=== PATIENT | male | born 2000 | race Hispanic/Latino ===

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

== ENCOUNTER 2019-12-07 19:13 | Emergency (ER) | payer OTHER ==
[~2019-12-07] VITALS: Ht 172.7 cm; Wt 72.7 kg
[2019-12-07] MEDS ORDERED: KEFLEX500 M1 PO (19:57)
[2019-12-07 20:05] VITALS: BP 141/83
== END 2019-12-07 20:05 | disposition home or self-care (01) | DRG 605 ==
LOC: ED 19:13
PROC: 0HQBXZZ Repair Right Upper Arm Skin, External Approach (ICD-10-PCS; principal; 2019-12-07)
DX: S41.111A Laceration without foreign body of right upper arm, initial encounter (principal); J45.909 Unspecified asthma, uncomplicated; W26.8XXA Contact with other sharp object(s), not elsewhere classified, initial encounter; Y92.89 Other specified places as the place of occurrence of the external cause; Y99.0 Civilian activity done for income or pay

== ENCOUNTER 2019-12-21 18:13 | Emergency (ER) | payer OTHER ==
[~2019-12-21 18:13] MED LIST changes: +KEFLEX500 M1 PO
== END 2019-12-21 18:45 | disposition left against medical advice (07) | DRG 951 ==
LOC: ED 18:13 → LWOBS 18:45
DX: Z53.21 Procedure and treatment not carried out due to patient leaving prior to being seen by health care provider (principal)

== ENCOUNTER 2019-12-25 14:04 | Emergency (ER) | payer OTHER ==
[~2019-12-25] VITALS: Ht 172.7 cm; Wt 70.0 kg
[2019-12-25 14:25] VITALS: BP 124/80
== END 2019-12-25 14:25 | disposition home or self-care (01) | DRG 607 ==
LOC: ED 14:04
PROC: 0HBRXZZ Excision of Toe Nail, External Approach (ICD-10-PCS; principal; 2019-12-25)
DX: L60.0 Ingrowing nail (principal); J45.909 Unspecified asthma, uncomplicated

== ENCOUNTER 2019-12-29 08:03 | Emergency (ER) | payer OTHER ==
[~2019-12-29] VITALS: Ht 172.7 cm; Wt 85.0 kg
[2019-12-29] MEDS ORDERED: MUPIROCIN21 TOP (08:40)
[2019-12-29 09:09] VITALS: BP 130/73
== END 2019-12-29 09:15 | disposition home or self-care (01) | DRG 607 ==
LOC: ED 08:03
PROC: 0HBRXZZ Excision of Toe Nail, External Approach (ICD-10-PCS; principal; 2019-12-29)
DX: L60.0 Ingrowing nail (principal); J45.909 Unspecified asthma, uncomplicated